=== PATIENT | female | born 1955 | race Caucasian/White ===

== ENCOUNTER 2020-03-23 08:58 | Outpatient (CLI) | payer MEDICARE, SELFPAY ==
--- NOTE | 2020-03-23 09:11 | MM_ITS ---
WS: [id number] BILATERAL DIGITAL SCREENING MAMMOGRAPHY WITH CAD CLINICAL INFORMATION: SCREENING HISTORY: Screening mammogram. No current complaints. COMPARISON: TECHNIQUE: Bilateral CC and MLO views. FINDINGS: The breasts are composed of heterogeneous fibroglandular density tissue, which can limit the detectio n of small underlying mass lesions. No suspicious mass, asymmetry, calcifications, or architectural d istortion. No evidence of malignancy. Lucent centered calcifications right breast. MM/[place] [id number] IMPRESSION: BI-RADS: 2-Benign FOLLOW UP: 1 Year Follow-up Recommend return to annual screening mammography.
== END 2020-03-23 08:59 | disposition home or self-care (01) ==
LOC: RADSHAW 09:02
PROVIDERS: PCP Family Medicine; Visit Provider Nurse Practitioner Women's Health
DX: Z12.31 Encounter for screening mammogram for malignant neoplasm of breast (principal)
CPT/HCPCS: 77067

== ENCOUNTER 2020-05-09 11:00 | Outpatient (CLI) | payer MEDICARE, SELFPAY ==
[2020-06-01 11:01] LABS: Blood Urea Nitrogen 12 mg/dL (8-23); Glomerular Filtration Rate 55.3 mL/min (90-130)
== END 2020-05-09 14:17 | disposition home or self-care (01) ==
PROVIDERS: PCP Family Medicine; Visit Provider Specialist
DX: R42 Dizziness and giddiness (principal)
CPT/HCPCS: 82565; 84520

== ENCOUNTER 2020-05-23 07:46 | Outpatient (CLI) | payer MEDICARE, SELFPAY ==
--- NOTE | 2020-05-23 08:06 | MR_ITS ---
WS: [id number] MRI BRAIN WITH HIGH-RESOLUTION IMAGING THROUGH THE INTERNAL AUDITORY CANALS WITHOUT AND WITH CONTRAST HISTORY: DIZZINESS AND GIDDINESS COMPARISON: None available. TECHNIQUE: Multiplanar, multisequence imaging is performed through the brain. Additional 3 mm imaging performed in multiple planes through the internal auditory canal. Postcontrast imaging with 17 ml's of Prohance. No acute intracranial hemorrhage, midline shift, edema or mass effect. Very mild scattered T2 and FLAIR signal hyperintensities from mild microvascular ischemic disease. No prior infarct. No enhancing mass. There is a filling defect in the basilar tip. There is very slight widening of the basilar tip also. This study is slightly compromised as there is motion artifact on the sequences after contrast. Ventricles and extra-axial spaces are normal. No inferior displacement of cerebellar tonsils. Clivus and pituitary gland are normal. Internal and external auditory canals: Unremarkable. Cranial nerves VII and VIII complexes: Unremarkable. No enhancement or mass. Cerebellopontine angles: Normal. Paranasal sinuses: Normal. Mastoid air cells: Normal. Calvarium and scalp: Normal. MR/MR iac's wo/w con* [id number] IMPRESSION: 1. Negative MRI internal auditory canals. 2. Partial filling defect in the basilar tip. Postcontrast examination is limi tamar due to motion artifact on all sequences. Recommend further evaluation of th e intracranial circulation. MR angiography or CT angiography is recommended to better evaluate the vertebral and basilar arteries.
== END 2020-05-23 07:47 | disposition home or self-care (01) ==
LOC: RADWPI 07:48
PROVIDERS: PCP Family Medicine; Visit Provider Specialist
DX: R42 Dizziness and giddiness (principal)
CPT/HCPCS: 70553; A9579

== ENCOUNTER 2020-06-02 08:29 | Outpatient (CLI) | payer MEDICARE, SELFPAY ==
--- NOTE | 2020-06-02 08:43 | CT_ITS ---
WS: [id number] CTA HEAD TECHNIQUE: Contrast enhanced CTA of the head with coronal and sagittal reformatted images and maximum intensity projection (MIP) images. NASCET criteria utilized. CLINICAL INFORMATION: OTHER MALFORMATIONS OF PRECEREBRAL VESSELS, DIZZINESS, GIDDI COMPARISON: MRI May 23, 2020 DLP: 1455.[address] scans at [facility] use at least one of these dose optimization techniques: automat ed exposure control; mA and/or kV adjustment per patient size (includes targeted exams where dose is matched to clinical indication); or iterative reconstruction. FINDINGS: INTRACRANIAL CTA: Previously described eccentric filling defect in the basilar tip has a normal appearance today. Lobul ated basilar tip normally fills. No evidence of basilar tip thrombus or aneurysm. Distal vertebral arteries are patent. Normal vascularity to the [employer] territory bilaterally. Both ICAs are patent at the skull base. Tortuous cavernous carotid arteries. Normal vascularity to the ADELSO and MCA territories bilaterally. No evidence of high-grade proximal stenosis or aneurysm. Normal pierre-white differentiation. No extra-axial fluid collections. No hydrocephalus. Normal visuali zed dural venous sinuses. CT/CT angio head [id number] IMPRESSION: 1. Basilar tip is normal in appearance today. No thrombus or filling defects. 2. Otherwise unremarkable intracranial CTA. No evidence of flow-limiting steno sis. 3. No other significant findings.
[2020-06-02] MEDS: iodixanol 320 mg/mL 100mL Btl IV (10:09)
== END 2020-06-02 08:30 | disposition home or self-care (01) ==
LOC: RADWPI 08:32
PROVIDERS: PCP Family Medicine; Visit Provider Otolaryngology
DX: Q28.1 Other malformations of precerebral vessels (principal); R42 Dizziness and giddiness
CPT/HCPCS: 70496; Q9967